=== PATIENT | female | born 1990 | race Caucasian/White ===

== ENCOUNTER → 2020-10-18 08:36 | Outpatient (CLI) | payer BC, SELFPAY ==
[2020-10-18 09:04] LABS: Add Manual Diff / Slide Review NO; Basophils Absolute Auto 100 /uL (0-100); Basophils Percent Auto 0.6 % (0-2); Eosinophils Absolute Auto 200 /uL (0-450); Eosinophils Percent Auto 2.7 % (2-4); Hematocrit 43.3 % (36-46); Hemoglobin 14.8 g/dL (12.0-16.0); Lymphocytes Absolute Auto 2500 /uL (1100-4500); Lymphocytes Percent Auto 30.9 % (25-40); Mean Corpuscular HGB Conc 34.1 % (30-36); Mean Corpuscular Hemoglobin 31.1 PG (26-34); Mean Corpuscular Volume 91.2 fL (80-100); Monocytes Absolute Auto 500 /uL (0-900); Neutrophils Absolute Auto 4800 /uL (1500-7000); Neutrophils Percent Auto 59.8 % (50-75); Platelet Count 297 X10^3/uL (150-400); Red Blood Cell Count 4.75 X10^6/uL (4.0-5.2); Red Cell Distribution Width 12.6 % (11.6-14.8); White Blood Cell Count 8.1 X10^3/uL (4.5-11.0)
[2020-10-18 09:32] LABS: Alanine Aminotransferase 15 IU/L (<35); Albumin 4.3 g/dL (3.5-5.0); Albumin Globulin Ratio 1.3 (1.0-2.8); Alkaline Phosphatase 46 U/L (38-126); Appearance Urine UA SL CLOUDY; Aspartate Aminotransferase 19 IU/L (14-36); BUN Creatinine Ratio 21.9 (6-22); Bilirubin Total 0.7 mg/dL (0.2-1.3); Bilirubin Urine UA NEGATIVE (NEGATIVE); Blood Urea Nitrogen 14 mg/dL (7-17); Calcium 9.5 mg/dL (8.4-10.2); Carbon Dioxide 30 mmol/L (22-32); Chloride 102 mmol/L (98-107); Cholesterol 170 mg/dL (140-199); Color Urine UA YELLOW; Estimated Glomerular Filt Rate > 60.0 mL/min (>60); Globulin 3.3 g/dL (1.7-4.1); Glucose 99 mg/dL (70-100); Glucose Urine UA NEGATIVE (Negative); HDL Cholesterol 42 mg/dL (40-60); HEMOLYSIS < 15 (0-50); Ketones Urine UA NEGATIVE (NEGATIVE); LDL Cholesterol Calculated 108 mg/dL (<100); Leukocyte Esterase Urine UA NEGATIVE (NEGATIVE); Nitrite Urine UA NEGATIVE (Negative); Occult Blood Urine UA TRACE-LYSED (Negative); Potassium 4.6 mmol/L (3.4-5.1); Protein Urine UA NEGATIVE (Negative); Sodium 138 mmol/L (137-145); Specific Gravity Urine UA >=1.030 (1.000-1.035); Total Protein 7.6 g/dL (6.3-8.2); Triglycerides 100 mg/dL (35-150); Urobilinogen Urine UA 0.2 E.U./dL (0.2)
[2020-10-18 09:46] LABS: Vitamin D 25 Hydroxy (D3) 47.3 ng/mL (30.0-100.0)
[2020-10-18 10:00] LABS: Thyroid Stimulating Hormone 2.36 uIU/mL (0.47-4.68)
== END ==
PROVIDERS: PCP Registered Nurse; Referring Provider Registered Nurse; Visit Provider Registered Nurse
DX: F32.9 Major depressive disorder, single episode, unspecified (principal); Z82.49 Family history of ischemic heart disease and other diseases of the circulatory system; R53.83 Other fatigue
CPT/HCPCS: 36415; 80053; 80061; 81003; 82306; 84439; 84443; 85025

== ENCOUNTER 2020-11-22 21:27 | Emergency (ER) | payer OTHER, SELFPAY ==
[2020-11-22 21:30] VITALS: BP 167/92; PULSE 92; RESP 20; O2SAT 99
[2020-11-22 21:41] VITALS: TEMP 36.7
--- NOTE | 2020-11-22 23:14 | ED_ITS ---
HPI - Chest Pain General Chief Complaint: Chest Pain Stated Complaint: CHEST PRESSURE Time Seen by Provider: 11/22/20 21:57 Source: patient Mode of arrival: Ambulatory Limitations: no limitations History of Present Illness HPI narrative: Patient is a 30-year-old healthy female who presents with chest discomfort. She said she was talking on the phone with her new boyfriend this evening they were getting along there was no argument. She hung up the phone and felt some chest heaviness. She denies any radiation no shortness of breath palpitations. She said that she works at [employer] she received the COVID vaccine 4 days ago in the last 2 days she has had some diarrhea. Today she has had 4 episodes of nonbloody diarrhea she threw up once yesterday. She has some mild abdominal cramping she feels a little dizzy but overall feels okay she has been afebrile.But now blood pressure is much better she is feeling better. Onset (ago): hour(s) Duration: constant Onset: during rest Pain location: substernal Severity: mild Quality: heaviness Relieving factors: nothing Exacerbating factors: nothing Context: recent illness (1 month ago had a viral syndrome treated with amoxicillin) Associated symptoms: nausea, vomiting and other (Diarrhea) Treatments prior to arrival chest pain: none Related Data Previous Rx's Medication Instructions Recorded atomoxetine 40 mg capsule 40 mg PO DAILY #90 cap 08/30/20 duloxetine 60 mg capsule,delayed 60 mg PO DAILY #90 cap 08/30/20 release Allergies Allergy/AdvReac Type Severity Reaction Status Date / Time No Known Drug Allergies Allergy Verified 10/17/20 12:52 Review of Systems Review of Systems Narrative: GENERAL: Denies chills, fatigue, malaise, fever, sweats, travel HEENT: Denies sinus pain, ear pain, sore throat, difficulty swallowing, neck pain RESPIRATORY: Denies dyspnea, cough, wheezing, hemoptysis, sputum. CARDIOVASCULAR: See HPI GASTROINTESTINAL: See HPI : Denies dysuria, frequency, incontinence, hematuria, urinary retention, flank pain. MUSCULOSKELETAL: Denies weakness, joint pain, or bony pain SKIN: No rash, no erythema, no pruritus NEUROLOGIC: Denies weakness, dizziness, headache, numbness, change in speech, confusion PSYCHIATRIC: No concerning psychosocial issues. 12 point review of systems is negative except for those stated above and HPI Patient History Medical History (Updated 11/22/20 @ 23:19 by Zully Duron DO) ADD (attention deficit disorder) Anxiety (~2013) Depression Preventative health care Surgical History Anesthesia [place] teeth extracted (~2011) Family History Father Sleep apnea Mother Hypertension Grandmother Melanoma Grandfather Cancer Social History Smoking Status: Never smoker Tobacco: How many years used: 5 Smoking Status: Never smoker Substance Use Type: does not use Exam Initial Vital Signs Initial Vital Signs: Vital Signs Pulse Rate 92 H 11/22/20 21:30 Respiratory Rate 20 11/22/20 21:30 Blood Pressure 167/92 H 11/22/20 21:30 Pulse Oximetry 99 11/22/20 21:30 GENERAL: Well-appearing, well-nourished and in no acute distress. HEENT: Head atraumatic,EOMI, pupils reactive, face symmetric, moist mucous membranes CARDIOVASCULAR: Regular rate and rhythm without murmurs, rubs or gallops. RESPIRATORY: Breath sounds equal bilaterally, no wheezes rales or rhonchi. ABDOMEN: Soft, nontender. Normoactive bowel sounds all 4 quadrants. No guarding or rebound. EXTREMITIES: Normal range of motion, no clubbing or edema. Neurovascularly intact NEUROLOGICAL: Alert and oriented x4.Normal gait and speech. SKIN: Warm, dry, no laceration, no petechiae, no rashes or lesions. Course Orders Ordered: ED Orders 11/22/20 21:31 EKG-12 Lead Stat Vital Signs Vital signs: Vital Signs - 8 hr 11/22/20 21:30 11/22/20 21:41 11/22/20 23:20 Temperature 98.1 F Pulse Rate 92 H 67 Respiratory Rate 20 12 Blood Pressure 167/92 H 127/78 Pulse Oximetry 99 98 MDM - Chest Pain ECG Data Attestation: I personally reviewed and interpreted this ECG as follows: Prior ECG tracings: not available for review Interpretation: Normal sinus rhythm rate 83 p.r. interval 160 QRS [address] changes MDM Narrative Medical decision making narrative: The patient's vitals are stable she is still having some mild chest discomfort but feels like it might be anxiety. She has no risk factors. She is offered blood work and a chest x-ray or distant test x- ray. At this time she is self-pay she is concerned about cost have tried to explain to her that she likely is covered but it cannot be proven is she supposed to have an some insurance. At this time she is declining blood work and chest x-ray she feels okay. She agrees to return to the ED if needed Discharge Plan Departure Patient Disposition: Home Clinical Impression: Atypical chest pain, Anxiety Instructions: DI for Atypical Chest Pain Activity Restrictions/Additional Instructions: *You have been diagnosed with atypical chest pain, anxiety *What to do: If you are having worsening symptoms please return to the ED for workup such as blood work and chest x-ray which you did not want today *Continue to take medications as directed *Follow up with your primary care provider in 2-3 days *Return to ER if you should have increasing chest pain shortness of or any new, worsening or concerning symptoms Prescriptions: No Action duloxetine 60 mg capsule,delayed release(DR/EC) 60 mg PO DAILY Qty: 90 RF: 3 atomoxetine 40 mg capsule 40 mg PO DAILY Qty: 90 RF: 1 Referrals: Rama Whaley ARNP [Primary Care Provider] -
[2020-11-22 23:20] VITALS: BP 127/78; PULSE 67; RESP 12; O2SAT 98
== END 2020-11-22 23:21 | disposition home or self-care (01) ==
PROVIDERS: Emergency Provider Emergency Medicine; PCP Registered Nurse
DX: R07.89 Other chest pain (principal); F41.9 Anxiety disorder, unspecified; R11.2 Nausea with vomiting, unspecified; R19.7 Diarrhea, unspecified; R10.9 Unspecified abdominal pain; R42 Dizziness and giddiness
CPT/HCPCS: 93005; 99283

== ENCOUNTER → 2021-03-15 12:11 | Outpatient (CLI) | payer OTHER, SELFPAY ==
--- NOTE | 2021-03-15 12:14 | DI.RAD.S_ITS ---
PROCEDURE: XR THORACIC SPINE 2V INDICATIONS: back pain TECHNIQUE: 3 views of the thoracic spine were acquired. COMPARISON: None. FINDINGS: Bones: No fractures or dislocations. No suspicious bony lesions. 12 pairs of ribs are noted, and appear intact where visualized. Mild multilevel thoracic spondylitic changes in the mid thoracic spine. No acute compression fractures. Soft tissues: No paravertebral stripe thickening. IMPRESSION: Thoracic spine without acute radiographic abnormalities. Mild mid thoracic spondylosis. Dictated by: Rah Concepcion M.D. on 03/15/2021 at 13:15 Approved by: Rah Concepcion M.D. on 03/15/2021 at 13:19
== END ==
PROVIDERS: PCP Registered Nurse; Referring Provider Registered Nurse; Visit Provider Registered Nurse
DX: M47.814 Spondylosis without myelopathy or radiculopathy, thoracic region (principal)
CPT/HCPCS: 72070

== ENCOUNTER → 2021-03-19 09:07 | Outpatient (CLI) | payer OTHER, SELFPAY | PROVIDERS: PCP Registered Nurse; Visit Provider Student in an Organized Health Care Education/Training Program | DX: N39.0 Urinary tract infection, site not specified (principal) | CPT/HCPCS: 87077; 87086; 87186 ==

== ENCOUNTER → 2021-05-15 10:26 | Outpatient (CLI) | payer OTHER, SELFPAY | PROVIDERS: PCP Registered Nurse; Visit Provider Physician Assistant | DX: R30.0 Dysuria (principal) | CPT/HCPCS: 87077; 87086 ==

== ENCOUNTER → 2021-11-27 07:41 | Outpatient (CLI) | payer OTHER, SELFPAY ==
[2021-11-27 08:01] LABS: Hematocrit 40.8 % (36-46); Hemoglobin 13.9 g/dL (12.0-16.0); Mean Corpuscular Hemoglobin 30.8 PG (26-34); Mean Corpuscular Volume 90.4 fL (80-100); Platelet Count 295 X10^3/uL (150-400); Red Blood Cell Count 4.52 X10^6/uL (4.0-5.2); Red Cell Distribution Width 13.1 % (11.6-14.8); White Blood Cell Count 8.8 X10^3/uL (4.5-11.0)
[2021-11-27 08:14] LABS: Alanine Aminotransferase 23 IU/L (<35); Albumin 4.2 g/dL (3.5-5.0); Albumin Globulin Ratio 1.4 (1.0-2.8); Alkaline Phosphatase 38 U/L (38-126); Aspartate Aminotransferase 23 IU/L (14-36); BUN Creatinine Ratio 15.9 (6-22); Bilirubin Total 0.7 mg/dL (0.2-1.3); Blood Urea Nitrogen 10 mg/dL (7-17); Calcium 9.3 mg/dL (8.4-10.2); Carbon Dioxide 29 mmol/L (22-32); Chloride 106 mmol/L (98-107); Cholesterol 177 mg/dL (140-199); Estimated Glomerular Filt Rate > 60.0 mL/min (>60); Globulin 2.9 g/dL (1.7-4.1); Glucose 102 mg/dL (70-100); HDL Cholesterol 52 mg/dL (40-60); HEMOLYSIS < 15 (0-50); LDL Cholesterol Calculated 102 mg/dL (<100); Potassium 4.3 mmol/L (3.4-5.1); Sodium 138 mmol/L (137-145); Total Protein 7.1 g/dL (6.3-8.2); Triglycerides 116 mg/dL (35-150)
== END ==
PROVIDERS: PCP Registered Nurse; Referring Provider Nurse Practitioner Family; Visit Provider Nurse Practitioner Family
DX: Z00.00 Encounter for general adult medical examination without abnormal findings (principal); Z13.6 Encounter for screening for cardiovascular disorders
CPT/HCPCS: 36415; 80053; 80061; 85027

== ENCOUNTER → 2022-08-26 07:18 | Outpatient (CLI) | payer OTHER, SELFPAY | PROVIDERS: PCP Registered Nurse; Visit Provider Registered Nurse | DX: J02.9 Acute pharyngitis, unspecified (principal) | CPT/HCPCS: 87070 ==

== ENCOUNTER 2022-08-28 23:53 | Emergency (ER) | payer OTHER, SELFPAY ==
[2022-08-29 00:19] VITALS: BP 137/99; PULSE 87; RESP 18; TEMP 36.8; O2SAT 100; BMI 30.4
--- NOTE | 2022-08-29 00:56 | ED_ITS ---
HPI - Dizziness General Chief Complaint: Dizziness Stated Complaint: DIZZY AND ENLARGED PUPILS Time Seen by Provider: 08/29/22 00:56 Source: patient Mode of arrival: Ambulatory History of Present Illness HPI Narrative: Patient is a 32-year-old female history a dog depression presenting today with dizziness. She says she was sleeping rolled over and felt like she was really dizzy. It certainly seems to be positional worse in certain positions than others. She went to look in the mirror and thought that her pupils were both dilated as well. She denies any palpitations is no numbness tingling or weakness. She has never had vertigo previously. She was doing well earlier today without any problem. No fevers or chills. No abdominal pain. She is quite nauseous but not yet vomited. Related Data Previous Rx's Medication Instructions Recorded duloxetine 60 mg capsule,delayed See Rx Instructions .Route 07/19/22 release .COMPLEX #90 caps hydroxyzine HCl 50 mg tablet 50 mg PO BEDTIME PRN insomnia #90 07/19/22 tabs atomoxetine 40 mg capsule See Rx Instructions .Route 08/05/22 .COMPLEX #90 caps penicillin V potassium 500 mg 500 mg PO BID pharyngitis 10 days 08/26/22 tablet #20 tabs meclizine 25 mg tablet 25 mg PO TID PRN dizziness #10 tabs 08/29/22 ondansetron 4 mg disintegrating 4 mg PO Q8H PRN nausea and 08/29/22 tablet vomiting #10 tabs Allergies Allergy/AdvReac Type Severity Reaction Status Date / Time No Known Drug Allergies Allergy Verified 08/29/22 00:19 Review of Systems Review of Systems Narrative: GENERAL: Denies chills, fatigue, malaise, fever, sweats, travel HEENT: Denies sinus pain, ear pain, sore throat, difficulty swallowing, neck pain RESPIRATORY: Denies dyspnea, cough, wheezing, hemoptysis, sputum. CARDIOVASCULAR: Denies chest pain, palpitations, orthopnea, edema GASTROINTESTINAL: See HPI : Denies dysuria, frequency, incontinence, hematuria, urinary retention, flank pain. MUSCULOSKELETAL: Denies weakness, joint pain, or bony pain SKIN: No rash, no erythema, no pruritus NEUROLOGIC: See HPI PSYCHIATRIC: No concerning psychosocial issues. 12 point review of systems is negative except for those stated above and HPI Patient History Medical History ADD (attention deficit disorder) Anxiety (~2013) Back pain Depression Preventative health care UTI (urinary tract infection) Surgical History Anesthesia [place] teeth extracted (~2011) Family History Father Sleep apnea Mother Hypertension Grandmother Melanoma Grandfather Cancer Social History Smoking Status: Current every day smoker Tobacco: How many years used: 5 alcohol intake: current (3 beers every 2 wks ) substance use type: does not use Smoking Status: Current every day smoker tobacco type: vaping Substance Use Type: does not use Exam Initial Vital Signs Initial Vital Signs: Vital Signs Temperature 98.3 F 08/29/22 00:19 Pulse Rate 87 08/29/22 00:19 Respiratory Rate 18 08/29/22 00:19 Blood Pressure 137/99 H 08/29/22 00:19 Pulse Oximetry 100 08/29/22 00:19 Oxygen Delivery Method 08/29/22 00:19 GENERAL: Alert pleasant 32 year and in no acute distress. HEENT: Head atraumatic,EOMI, pupils reactive, no nystagmus face symmetric, moist mucous membranes CARDIOVASCULAR: Regular rate and rhythm without murmurs, rubs or gallops. RESPIRATORY: Breath sounds equal bilaterally, no wheezes rales or rhonchi. ABDOMEN: Soft, nontender. Normoactive bowel sounds all 4 quadrants. No guarding or rebound. EXTREMITIES: Normal range of motion, no clubbing or edema. Neurovascularly intact NEUROLOGICAL: Alert and oriented x4.Normal gait and speech. [employer]ist strength equal bilaterally SKIN: Warm, dry, no laceration, no petechiae, no rashes or lesions. Course Orders Ordered: ED Orders 08/29/22 00:32 EKG-12 Lead Stat 08/29/22 01:15 CBC Auto Diff [Complete Blood Count AUTO DIFF] Stat CMP [Comprehensive Metabolic Panel] Stat Discontinued Medications Sodium Chloride (Normal Saline 0.9%) 1,000 mls @ 1,000 mls/hr IV BOLUS ONE Stop: 08/29/22 02:01 Last Infusion: 08/29/22 02:14 Dose: 0 mls/hr Documented By: Admin: 08/29/22 01:14 Dose: 1,000 mls/hr Documented By: STAN Meclizine HCl (Meclizine Hcl 12.5 Mg Tablet) 25 mg PO NOW ONE Stop: 08/29/22 01:03 Last Admin: 08/29/22 01:14 Dose: 25 mg Documented By: STAN Ondansetron HCl (Ondansetron 4 Mg/2 Ml Inj) 4 mg IV NOW ONE Stop: 08/29/22 01:03 Last Admin: 08/29/22 01:14 Dose: 4 mg Documented By: NR Vital Signs Vital signs: Vital Signs - 8 hr 08/29/22 00:19 08/29/22 02:37 Temperature 98.3 F Pulse Rate 87 78 Respiratory Rate 18 16 Blood Pressure 137/99 H 125/75 Pulse Oximetry 100 100 Oxygen Delivery Method Room Air Room Air MDM - Dizziness Lab Data Result diagrams: 08/29/22 01:15 08/29/22 01:15 Labs: Lab Results 08/29/22 08/29/22 Range/Units 01:15 01:15 WBC 10.3 (4.5-11.0) X10^3/uL RBC 4.66 (4.0-5.2) X10^6/uL Hgb 14.1 (12.0-16.0) g/dL Hct 41.8 (36-46) % MCV 89.7 (80-100) fL MCH 30.3 (26-34) PG MCHC 33.8 (30-36) % RDW 13.2 (11.6-14.8) % Plt Count 301 (150-400) X10^3/uL Neut % (Auto) 59.2 (50-75) % Lymph % (Auto) 29.4 (25-40) % [place] % (Auto) 8.1 (3-14) % Eos % (Auto) 2.2 (2-4) % Baso % (Auto) 1.1 (0-2) % Neut # (Auto) 6100 (6134-6624) /uL Lymph # (Auto) 3000 (6913-1910) /uL [place] # (Auto) 800 (0-900) /uL Eos # (Auto) 200 (0-450) /uL Baso # (Auto) 100 (0-100) /uL Sodium 139 (137-145) mmol/L Potassium 4.2 (3.4-5.1) mmol/L Chloride 100 (98-107) mmol/L Carbon Dioxide 31 (22-32) mmol/L BUN 12 (7-17) mg/dL Creatinine 0.59 (0.52-1.04) mg/dL Estimated GFR > 60 (>60) mL/min BUN/Creatinine Ratio 20.3 (6-22) Glucose 104 H (70-100) mg/dL Calcium 9.2 (8.4-10.2) mg/dL Total Bilirubin 0.5 (0.2-1.3) mg/dL AST 21 (14-36) IU/L ALT 24 (<35) IU/L Alkaline Phosphatase 68 (38-126) U/L Total Protein 7.7 (6.3-8.2) g/dL Albumin 4.2 (3.5-5.0) g/dL Globulin 3.5 (1.7-4.1) g/dL Albumin/Globulin Ratio 1.2 (1.0-2.8) ECG Data Interpretation: Normal sinus rhythm rate 70 p.r. interval 158 QRS [address] changes T- wave inversions noted in lead 3 only MDM Narrative Medical decision making narrative: Patient is having symptoms that is worse with movement consistent with vertigo. No significant focal deficits. Blood work is overall reassuring. She is given meclizine here in the emergency department. Overall feeling significantly better. No need for advanced imaging at this time. She is ambulatory. Blood work is overall reassuring. Discharge Plan Departure Patient Disposition: Home Clinical Impression: Vertigo Instructions: DI for Vertigo Activity Restrictions/Additional Instructions: *You have been diagnosed with vertigo *What to do: At this time healthy feel better soon. Rest and hydrate as needed. *Continue to take medications as directed--> [facility] Meclizine 25 mg every 8 hours if needed for dizziness Zofran 4 mg every 8 hours if needed for nausea vomiting *Follow up with your primary care provider in 2-3 days or call [phone] *Return to ER if you should have increasing dizziness chest pain palpitations balance problem or any new, worsening or concerning symptoms Prescriptions: New meclizine 25 mg tablet 25 mg PO TID PRN (Reason: dizziness) Qty: 10 0RF ondansetron 4 mg tablet,disintegrating 4 mg PO Q8H PRN (Reason: nausea and vomiting) Qty: 10 0RF No Action penicillin V potassium 500 mg tablet 500 mg PO BID 10 Days Qty: 20 0RF atomoxetine 40 mg capsule See Rx Instructions .ROUTE .COMPLEX Qty: 90 1RF Dose Instruction: take 1 capsule by mouth once daily Rx Instructions: take 1 capsule by mouth once daily hydroxyzine HCl 50 mg tablet 50 mg PO BEDTIME PRN (Reason: insomnia) Qty: 90 1RF duloxetine 60 mg capsule,delayed release(DR/EC) See Rx Instructions .ROUTE .COMPLEX Qty: 90 1RF Dose Instruction: take 1 capsule by mouth once daily Rx Instructions: take 1 capsule by mouth once daily Referrals: Rama Whaley ARNP [Primary Care Provider] - Visit Report Forms: Patient Portal/API
[2022-08-29] MEDS: MECLIZINE HCL 12.5 MG TABLET 25 MG PO (01:14)
[2022-08-29] MEDS: ONDANSETRON 4 MG/2 ML INJ IV (01:14)
[2022-08-29] MEDS: SODIUM CHLORIDE 0.9% 1,000 ML 1000 ML IV (01:14)
[2022-08-29 01:31] LABS: Add Manual Diff / Slide Review NO; Basophils Absolute Auto 100 /uL (0-100); Basophils Percent Auto 1.1 % (0-2); Eosinophils Absolute Auto 200 /uL (0-450); Eosinophils Percent Auto 2.2 % (2-4); Hematocrit 41.8 % (36-46); Hemoglobin 14.1 g/dL (12.0-16.0); Lymphocytes Absolute Auto 3000 /uL (1100-4500); Lymphocytes Percent Auto 29.4 % (25-40); Mean Corpuscular HGB Conc 33.8 % (30-36); Mean Corpuscular Hemoglobin 30.3 PG (26-34); Mean Corpuscular Volume 89.7 fL (80-100); Monocytes Absolute Auto 800 /uL (0-900); Monocytes Percent Auto 8.1 % (3-14); Neutrophils Absolute Auto 6100 /uL (1500-7000); Neutrophils Percent Auto 59.2 % (50-75); Platelet Count 301 X10^3/uL (150-400); Red Blood Cell Count 4.66 X10^6/uL (4.0-5.2); Red Cell Distribution Width 13.2 % (11.6-14.8); White Blood Cell Count 10.3 X10^3/uL (4.5-11.0)
[2022-08-29 01:37] LABS: Alanine Aminotransferase 24 IU/L (<35); Albumin 4.2 g/dL (3.5-5.0); Albumin Globulin Ratio 1.2 (1.0-2.8); Alkaline Phosphatase 68 U/L (38-126); Aspartate Aminotransferase 21 IU/L (14-36); BUN Creatinine Ratio 20.3 (6-22); Bilirubin Total 0.5 mg/dL (0.2-1.3); Blood Urea Nitrogen 12 mg/dL (7-17); Calcium 9.2 mg/dL (8.4-10.2); Carbon Dioxide 31 mmol/L (22-32); Chloride 100 mmol/L (98-107); Estimated Glomerular Filt Rate > 60 mL/min (>60); Globulin 3.5 g/dL (1.7-4.1); Glucose 104 mg/dL (70-100); HEMOLYSIS 16 (0-50); Potassium 4.2 mmol/L (3.4-5.1); Sodium 139 mmol/L (137-145); Total Protein 7.7 g/dL (6.3-8.2)
--- NOTE | 2022-08-29 01:57 | PC.NURSE ---
pt states she was at [facility] 2 days ago and prescribed pcn for white spots on her tonsils, provider there also states she had some water in her ears. pt woke up today with dizzyness when she moves her head too fast.
[2022-08-29 02:37] VITALS: BP 125/75; PULSE 78; RESP 16; O2SAT 100
== END 2022-08-29 02:40 | disposition home or self-care (01) ==
PROVIDERS: Emergency Provider Emergency Medicine; PCP Registered Nurse
DX: R42 Dizziness and giddiness (principal); R07.9 Chest pain, unspecified
CPT/HCPCS: 36415; 80053; 85025; 93005; 93010; 96361; 96374; 99284; J2405

== ENCOUNTER → 2022-11-17 09:20 | Outpatient (CLI) | payer OTHER, SELFPAY | PROVIDERS: PCP Nurse Practitioner; Visit Provider Nurse Practitioner Family | DX: J02.9 Acute pharyngitis, unspecified (principal) | CPT/HCPCS: 87070 ==

== ENCOUNTER → 2023-03-14 08:58 | Outpatient (CLI) | payer OTHER, SELFPAY ==
[2023-03-14 10:26] LABS: Influenza A - CEPHEID Flu A NEGATIVE (NEGATIVE); Influenza B - CEPHEID Flu B NEGATIVE (NEGATIVE); Respiratory Syncytial Virus Negative (Negative)
[2023-03-14 11:20] LABS: Urine N gonorrhoeae NOT DETECTED
[2023-03-14 11:24] LABS: COVID-19 CEPHEID 4-PLEX PCR Negative (Negative); Urine Chlamydia NOT DETECTED
== END ==
PROVIDERS: PCP Nurse Practitioner; Visit Provider Physician Assistant
DX: N89.8 Other specified noninflammatory disorders of vagina (principal); R52 Pain, unspecified; N39.0 Urinary tract infection, site not specified
CPT/HCPCS: 0241U; 87086; 87210; 87491; 87591

== ENCOUNTER → 2023-03-14 09:04 | Outpatient (CLI) | payer OTHER, SELFPAY ==
[2023-03-14 15:47] LABS: Hepatitis B Surface Antigen NEGATIVE s/c (NEGATIVE)
[2023-03-14 16:23] LABS: HIV 1 & 2 Ab/Ag 4th Gen Combo NEGATIVE (NEGATIVE); Hep C Virus Ab w/Reflex Quant NEGATIVE s/c (NEGATIVE)
[2023-03-15 15:37] LABS: HSV 2 IGG AB < 0.91 index (0.00-0.90); HSV1IGG < 0.91 index (0.00-0.90)
[2023-03-16 06:47] LABS: RPR Screen Non Reactive (Non Reactive)
== END ==
PROVIDERS: Physician Assistant; PCP Nurse Practitioner; Referring Provider Urology; Visit Provider Urology
DX: N76.5 Ulceration of vagina (principal); N89.8 Other specified noninflammatory disorders of vagina; R52 Pain, unspecified; N39.0 Urinary tract infection, site not specified; Z20.2 Contact with and (suspected) exposure to infections with a predominantly sexual mode of transmission
CPT/HCPCS: 0241U; 36415; 86592; 86695; 86696; 86803; 87086; 87210; 87340; 87389; 87491; 87591

== ENCOUNTER → 2024-08-25 07:35 | Outpatient (CLI) | payer OTHER, SELFPAY ==
[2024-08-25 09:45] LABS: Influenza A - CEPHEID Flu A NEGATIVE (NEGATIVE); Influenza B - CEPHEID Flu B NEGATIVE (NEGATIVE); Respiratory Syncytial Virus Negative (Negative)
[2024-08-25 09:46] LABS: COVID-19 CEPHEID 4-PLEX PCR Negative (Negative)
== END ==
PROVIDERS: PCP Family Medicine; Referring Provider Nurse Practitioner Family; Visit Provider Nurse Practitioner Family
DX: J02.9 Acute pharyngitis, unspecified (principal); R05.1 Acute cough
CPT/HCPCS: 0241U; 87070